=== PATIENT | male | born 2000 | race Caucasian/White ===

== ENCOUNTER 2020-10-22 05:20 | Emergency (ER) | payer OTHER ==
[~2020-10-22] VITALS: Ht 175.3 cm; Wt 77.1 kg
[~2020-10-22 05:20] MED LIST: ACET325UDC; AMOCLA875 PO; AMOX50SU PO; CODACEE120 PO; CODGUAEL PO; HYDR1TAB94 PO; IBUP100S PO; PENVK250SU PO; Percocet 5-3251 EACH PO; RIFA300 PO; SULTRIDS PO; TYLENOL; Zantac150 MG PO
[2020-10-22] MEDS ORDERED: PSEUDOEPHEDRINE30 M1 PO (06:48)
[2020-10-22] MEDS ORDERED: Flonase 0.05% N16 GM (06:48)
== END 2020-10-22 07:12 | disposition home or self-care (01) ==
LOC: ER 05:20
DX: B34.9 Viral infection, unspecified (principal); J32.9 Chronic sinusitis, unspecified; Z20.822 Contact with and (suspected) exposure to COVID-19
CPT/HCPCS: 99283